=== PATIENT | male | born 1935 | race Caucasian/White ===

== ENCOUNTER 2023-02-17 19:15 | Inpatient (IN) | payer MEDICARE, OTHER ==
[~2023-02-17] VITALS: Ht 165.1 cm; Wt 73.5 kg
[2023-02-17] MEDS ORDERED: ALBU2.5V13 NEB (19:50)
[2023-02-17] MEDS ORDERED: HYDR-501 PO (19:50)
[2023-02-17] MEDS ORDERED: ARIP5TAB10 PO (19:50)
[2023-02-17] MEDS ORDERED: TIMO5DRO31 EACHEYE (19:50)
[2023-02-17] MEDS ORDERED: FLUT1BLS15 INH (19:50)
[2023-02-17 23:02] LABS: *BLOOD, URINE NEGATIVE (NEGATIVE); *CLARITY,URINE CLEAR (CLEAR); *COLOR,URINE YELLOW (YELLOW); *KETONES,URINE TRACE (NEGATIVE); *PROTEIN,URINE 1+ (NEGATIVE); *UROBILINOGEN,URINE 0.2 E.U./dl (NORMAL); LEUKOCYTE ESTERASE ,URINE NEGATIVE (NEGATIVE); NITRITE, URINE NEGATIVE (NEGATIVE); UGLUCOSE NEGATIVE (NEGATIVE)
[2023-02-17 23:03] LABS: *BILIRUBIN,URIN 1+ (NEGATIVE)
[2023-02-17 23:15] LABS: *AMPHETAMINE, URINE NEGATIVE (NEGATIVE); *BARBITURATE, URINE NEGATIVE (NEGATIVE); *BENZODIAZEPINE, URINE NEGATIVE (NEGATIVE); *CANNABINOID, URINE NEGATIVE (NEGATIVE); *COCCAINE, URINE NEGATIVE (NEGATIVE); *OPIATE, URINE NEGATIVE (NEGATIVE); *PHENCYCLIDINE SCREEN,URINE NEGATIVE (NEGATIVE)
[2023-02-17 23:17] LABS: FENTANYL, URINE NEGATIVE (NEGATIVE)
[2023-02-17 23:19] VITALS: BP 114/58; TEMP 98.5; O2SAT 94
[2023-02-18] MEDS ORDERED: TEMAZEPAM 7.5 MG CAPSULE PO PRN (00:30)
[2023-02-18] MEDS ORDERED: MAG HYDROX/AL HYDROX/SIMETH 30 ML LIQUID UDC PO PRN (00:30)
[2023-02-18] MEDS ORDERED: MAGNESIUM HYDROXIDE 30 ML LIQUID UDC PO PRN (00:30)
[2023-02-18 07:30] VITALS: BP 134/53; TEMP 98.2; O2SAT 96
[2023-02-18 07:55] LABS: CALCIUM 8.9 mg/dL (8.5-10.1); CARBON DIOXIDE 26 mmol/L (21-32); CHLORIDE 102 mmol/L (98-107); GLUCOSE 101 mg/dL (74-106); POTASSIUM 3.9 mmol/L (3.5-5.1); SODIUM SERUM 136 mmol/L (136-145); UREA NITROGEN, BLOOD 26 mg/dL (7-18)
[2023-02-18 07:56] LABS: AMMONIA < 10 umol/L (11-32)
[2023-02-18 08:04] LABS: BASOPHILS % (AUTO) 0.2 % (0.0-2.0); EOSINOPHILS # (AUTO) 0.1 K/uL (0.0-0.7); EOSINOPHILS % (AUTO) 1.6 % (0.0-7.0); HEMATOCRIT 37.4 % (36.7-47.1); HEMOGLOBIN 12.7 g/dL (12.5-16.3); LYMPHOCYTES # (AUTO) 2.1 K/uL (0.8-4.8); MEAN CORPUSCULAR HEMOGLOBIN 32.6 uug (23.8-33.4); MEAN CORPUSCULAR HGB CONC 34 g/dL (32.5-36.3); MONOCYTES # (AUTO) 1.1 K/uL (0.1-1.30); MONOCYTES % (AUTO) 14.7 % (0.0-11.0); NEUTROPHILS # (AUTO) 4.4 K/uL (1.8-8.9); NEUTROPHILS % (AUTO) 56.5 % (38.5-71.5); PLATELET COUNT (AUTO) 263 K/uL (152-348); RED BLOOD CELL COUNT(AUTO) 3.89 MIL/uL (4.06-5.63); RED CELL DISTRIBUTION WIDTH 13.9 % (12.1-16.2); WHITE BLOOD COUNT (AUTO) 7.8 K/uL (3.6-10.2)
[2023-02-18 08:05] LABS: DIFFERENTIAL COMMENT 1
[2023-02-18 08:09] LABS: THYROID STIMULATING HORMONE 2.046 mIU/mL (0.358-3.740)
[2023-02-18 08:13] LABS: ALANINE AMINOTRANSFERASE 25 U/L (16-63); ALBUMIN 2.4 g/dL (3.4-5.0); ALKALINE PHOSPHATASE 82 U/L (50-136); ASPARTATE AMINOTRANSFERASE 19 U/L (15-37); BILIRUBIN,DIRECT 0.2 mg/dL (0.0-0.2); BILIRUBIN,TOTAL 0.3 mg/dL (0.2-1.0); TOTAL PROTEIN, SERUM 7.1 g/dL (6.4-8.2)
[2023-02-18 08:15] LABS: ACETAMINOPHEN < 2.0 ug/mL (10-30)
[2023-02-18 09:25] LABS: ETHANOL < 3 MG/DL (0-10)
[2023-02-18] MEDS ORDERED: FLUTICASONE/SALMETEROL 250/50 INHALER INH SCH (09:30)
[2023-02-18] MEDS: ARIPIPRAZOLE 5 MG TABLET PO SCH ×2 (13:31→21:13)
[2023-02-18] MEDS ORDERED: TIMO1DRO EACHEYE (15:30)
[2023-02-18 15:38] VITALS: BP 92/46; TEMP 98.2; O2SAT 96
[2023-02-18] MEDS: DIVALPROEX SPRINKLE 125 MG CAP.SPRINK PO SCH (17:00)
[2023-02-18 20:00] VITALS: BP 115/60; TEMP 98.1; O2SAT 95
[2023-02-18] MEDS: hydrOXYzine HCL 25 MG TABLET PO PRN (21:14)
[2023-02-18] MEDS: LORAZEPAM 0.5 MG TABLET PO PRN (21:14)
[2023-02-19 07:55] VITALS: BP 103/56; TEMP 98.2; O2SAT 98
[2023-02-19] MEDS: ARIPIPRAZOLE 5 MG TABLET PO SCH ×2 (08:39→20:36)
[2023-02-19] MEDS: DIVALPROEX SPRINKLE 125 MG CAP.SPRINK PO SCH ×2 (08:39→17:37)
[2023-02-19] MEDS: TIMOLOL MALEATE 0.25% OPHT DR 5 ML BOTTLE EACHEYE SCH (08:39)
[2023-02-19] MEDS: FLUTICASONE/VILANTEROL 1 EACH BLST.W.DEV INH SCH (12:53)
[2023-02-19 15:40] VITALS: BP 107/48; TEMP 99.4; O2SAT 94
[2023-02-19 20:11] VITALS: BP 129/78; TEMP 98.1; O2SAT 98
[2023-02-20 08:00] VITALS: BP 106/45; TEMP 97.6; O2SAT 93
[2023-02-20] MEDS: DIVALPROEX SPRINKLE 125 MG CAP.SPRINK PO SCH ×2 (09:02→17:02)
[2023-02-20] MEDS: ARIPIPRAZOLE 5 MG TABLET PO SCH ×3 (09:02→20:09)
[2023-02-20] MEDS: TIMOLOL MALEATE 0.25% OPHT DR 5 ML BOTTLE EACHEYE SCH (09:02)
[2023-02-20] MEDS: FLUTICASONE/VILANTEROL 1 EACH BLST.W.DEV INH SCH (09:03)
[2023-02-20 15:36] VITALS: BP 92/43; TEMP 98.8; O2SAT 98
[2023-02-20 19:50] VITALS: BP 140/55; TEMP 99.2; O2SAT 95
[2023-02-20 22:30] VITALS: O2SAT 96
[2023-02-20 22:41] VITALS: O2SAT 98
[2023-02-20 22:45] VITALS: O2SAT 98
[2023-02-21 07:55] VITALS: BP 111/61; TEMP 98.6; O2SAT 99
[2023-02-21] MEDS: LORAZEPAM 0.5 MG TABLET PO PRN (08:05)
[2023-02-21] MEDS: DIVALPROEX SPRINKLE 125 MG CAP.SPRINK PO SCH ×2 (08:26→17:00)
[2023-02-21] MEDS: ARIPIPRAZOLE 5 MG TABLET PO SCH ×3 (08:26→20:44)
[2023-02-21] MEDS: ACETAMINOPHEN 325 MG TABLET PO PRN ×2 (08:26→17:02)
[2023-02-21] MEDS: FLUTICASONE/VILANTEROL 1 EACH BLST.W.DEV INH SCH (08:27)
[2023-02-21] MEDS: TIMOLOL MALEATE 0.25% OPHT DR 5 ML BOTTLE EACHEYE SCH (08:27)
[2023-02-21 09:28] LABS: ALANINE AMINOTRANSFERASE 42 U/L (16-63); ALBUMIN 2.5 g/dL (3.4-5.0); ALKALINE PHOSPHATASE 83 U/L (50-136); ASPARTATE AMINOTRANSFERASE 33 U/L (15-37); BILIRUBIN,TOTAL 0.6 mg/dL (0.2-1.0); CALCIUM 9.1 mg/dL (8.5-10.1); CARBON DIOXIDE 24 mmol/L (21-32); CHLORIDE 101 mmol/L (98-107); GLUCOSE 141 mg/dL (74-106); SODIUM SERUM 132 mmol/L (136-145); TOTAL PROTEIN, SERUM 8.1 g/dL (6.4-8.2); UREA NITROGEN, BLOOD 21 mg/dL (7-18)
[2023-02-21 14:47] VITALS: BP 114/53; TEMP 98.5; O2SAT 95
[2023-02-21] MEDS ORDERED: REMEDY ESSENTIAL ZINC PASTE 113 GM TOP PRN (15:15)
[2023-02-21] MEDS: hydrOXYzine HCL 25 MG TABLET PO PRN (15:42)
[2023-02-21 16:07] VITALS: O2SAT 98
[2023-02-21] MEDS: ALBUTEROL SULFATE 2.5 MG/ 0.5 ML NEBU NEB PRN (16:07)
[2023-02-21 19:45] VITALS: BP 117/64; TEMP 98.1; O2SAT 95
[2023-02-21 20:20] VITALS: O2SAT 97
[2023-02-22] MEDS: ACETAMINOPHEN 325 MG TABLET PO PRN ×2 (06:54→20:03)
[2023-02-22 07:34] VITALS: BP 114/57; TEMP 98.1; O2SAT 98
[2023-02-22] MEDS: FLUTICASONE/VILANTEROL 1 EACH BLST.W.DEV INH SCH (09:00)
[2023-02-22] MEDS: TIMOLOL MALEATE 0.25% OPHT DR 5 ML BOTTLE EACHEYE SCH (09:00)
[2023-02-22] MEDS: DIVALPROEX SPRINKLE 125 MG CAP.SPRINK PO SCH ×2 (09:19→17:45)
[2023-02-22] MEDS: ARIPIPRAZOLE 5 MG TABLET PO SCH (09:19)
[2023-02-22] MEDS: OLANZAPINE 2.5 MG TABLET PO SCH ×3 (12:56→20:02)
[2023-02-22 16:02] VITALS: BP 120/53; TEMP 98; O2SAT 98
[2023-02-22 16:14] LABS: FREE PSA 0.01 ng/mL (0.00-45); PROSTATE SPECIFIC ANTIGEN 0.13 ng/mL (0.00-4.00)
[2023-02-22 20:00] VITALS: BP 140/61; TEMP 99.4; O2SAT 95
[2023-02-22 21:29] VITALS: O2SAT 97
[2023-02-22 21:36] VITALS: TEMP 98.5
[2023-02-23] MEDS: ACETAMINOPHEN 325 MG TABLET PO PRN ×2 (06:22→20:38)
[2023-02-23 07:51] VITALS: BP 112/57; TEMP 98; O2SAT 98
[2023-02-23] MEDS: OLANZAPINE 2.5 MG TABLET PO SCH ×3 (08:46→20:38)
[2023-02-23] MEDS: DIVALPROEX SPRINKLE 125 MG CAP.SPRINK PO SCH ×2 (08:46→17:20)
[2023-02-23] MEDS: TIMOLOL MALEATE 0.25% OPHT DR 5 ML BOTTLE EACHEYE SCH (08:47)
[2023-02-23] MEDS: FLUTICASONE/VILANTEROL 1 EACH BLST.W.DEV INH SCH (08:48)
[2023-02-23] MEDS ORDERED: SWABABLE VALVE TRANSFER SET EA MC ONE (10:55)
[2023-02-23] MEDS ORDERED: IV NORMAL SALINE 250 ML BAG ONE (10:55)
[2023-02-23] MEDS ORDERED: IOHEXOL 300MG/ML 100 ML INFUS..BTL ONE (10:55)
[2023-02-23 16:08] VITALS: BP 115/57; TEMP 98; O2SAT 98
[2023-02-23 20:00] VITALS: BP 137/68; TEMP 97.8; O2SAT 96
[2023-02-24 08:09] VITALS: BP 117/60; TEMP 98; O2SAT 99
[2023-02-24] MEDS: TIMOLOL MALEATE 0.25% OPHT DR 5 ML BOTTLE EACHEYE SCH (08:44)
[2023-02-24] MEDS: OLANZAPINE 2.5 MG TABLET PO SCH ×3 (08:45→20:05)
[2023-02-24] MEDS: DIVALPROEX SPRINKLE 125 MG CAP.SPRINK PO SCH ×2 (08:45→17:13)
[2023-02-24] MEDS: FLUTICASONE/VILANTEROL 1 EACH BLST.W.DEV INH SCH (08:47)
[2023-02-24 16:28] VITALS: BP 94/62; TEMP 98; O2SAT 98
[2023-02-24 19:42] VITALS: BP 111/58; TEMP 98.2; O2SAT 100
[2023-02-24] MEDS: ACETAMINOPHEN 325 MG TABLET PO PRN (23:14)
[2023-02-25 06:35] VITALS: BP 160/90; TEMP 98; O2SAT 98
[2023-02-25 07:54] VITALS: BP 163/60; TEMP 98; O2SAT 96
[2023-02-25] MEDS: FLUTICASONE/VILANTEROL 1 EACH BLST.W.DEV INH SCH (08:44)
[2023-02-25] MEDS: TIMOLOL MALEATE 0.25% OPHT DR 5 ML BOTTLE EACHEYE SCH (08:45)
[2023-02-25] MEDS: OLANZAPINE 2.5 MG TABLET PO SCH ×3 (08:45→20:39)
[2023-02-25] MEDS: DIVALPROEX SPRINKLE 125 MG CAP.SPRINK PO SCH ×3 (08:45→16:56)
[2023-02-25 15:37] VITALS: BP 115/66; TEMP 98; O2SAT 100
[2023-02-25 20:14] VITALS: BP 125/57; TEMP 98.1; O2SAT 96
[2023-02-26] MEDS: ACETAMINOPHEN 325 MG TABLET PO PRN ×2 (04:14→21:40)
[2023-02-26] MEDS: LORAZEPAM 0.5 MG TABLET PO PRN ×2 (04:14→21:40)
[2023-02-26 07:53] VITALS: BP 121/59; TEMP 98; O2SAT 98
[2023-02-26] MEDS: TIMOLOL MALEATE 0.25% OPHT DR 5 ML BOTTLE EACHEYE SCH (09:26)
[2023-02-26] MEDS: OLANZAPINE 2.5 MG TABLET PO SCH ×3 (09:26→21:40)
[2023-02-26] MEDS: DIVALPROEX SPRINKLE 125 MG CAP.SPRINK PO SCH ×3 (09:26→16:47)
[2023-02-26] MEDS: FLUTICASONE/VILANTEROL 1 EACH BLST.W.DEV INH SCH (09:27)
[2023-02-26 15:40] VITALS: BP 118/67; TEMP 97.8; O2SAT 97
[2023-02-26 20:16] VITALS: BP 120/62; TEMP 98.1; O2SAT 96
[2023-02-26 21:31] VITALS: O2SAT 99
[2023-02-26] MEDS: ALBUTEROL SULFATE 2.5 MG/ 0.5 ML NEBU NEB PRN (21:31)
[2023-02-26 21:41] VITALS: O2SAT 99
[2023-02-27 07:53] VITALS: BP 125/68; TEMP 98.2; O2SAT 96
[2023-02-27 08:41] LABS: BASOPHILS # (AUTO) 0.1 K/UL (0.0-0.2); BASOPHILS % (AUTO) 0.7 % (0.0-2.0); EOSINOPHILS # (AUTO) 0.1 K/uL (0.0-0.7); EOSINOPHILS % (AUTO) 0.7 % (0.0-7.0); HEMATOCRIT 36.5 % (36.7-47.1); HEMOGLOBIN 12.4 g/dL (12.5-16.3); MEAN CORPUSCULAR HEMOGLOBIN 32.4 uug (23.8-33.4); MEAN CORPUSCULAR HGB CONC 34 g/dL (32.5-36.3); MEAN CORPUSCULAR VOLUME 95.1 fL (73.0-96.2); MONOCYTES % (AUTO) 10.1 % (0.0-11.0); NEUTROPHILS # (AUTO) 6.8 K/uL (1.8-8.9); NEUTROPHILS % (AUTO) 68.5 % (38.5-71.5); PLATELET COUNT (AUTO) 387 K/uL (152-348); RED BLOOD CELL COUNT(AUTO) 3.84 MIL/uL (4.06-5.63); RED CELL DISTRIBUTION WIDTH 14.1 % (12.1-16.2); WHITE BLOOD COUNT (AUTO) 9.9 K/uL (3.6-10.2)
[2023-02-27 08:50] LABS: DIFFERENTIAL COMMENT 1
[2023-02-27] MEDS: DIVALPROEX SPRINKLE 125 MG CAP.SPRINK PO SCH ×3 (09:29→17:08)
[2023-02-27] MEDS: OLANZAPINE 2.5 MG TABLET PO SCH ×3 (09:30→21:10)
[2023-02-27] MEDS: FLUTICASONE/VILANTEROL 1 EACH BLST.W.DEV INH SCH (09:30)
[2023-02-27] MEDS: TIMOLOL MALEATE 0.25% OPHT DR 5 ML BOTTLE EACHEYE SCH (09:30)
[2023-02-27 15:36] VITALS: BP 132/61; TEMP 98.2; O2SAT 98
[2023-02-27] MEDS: ACETAMINOPHEN 325 MG TABLET PO PRN ×2 (17:41→23:52)
[2023-02-27 20:00] VITALS: BP 140/54; TEMP 98.1; O2SAT 91
[2023-02-28 09:06] LABS: *TESTOSTERONE, SERUM 269 ng/dL (264-916)
[2023-02-28] MEDS: DIVALPROEX SPRINKLE 125 MG CAP.SPRINK PO SCH ×2 (09:36→13:09)
[2023-02-28] MEDS: FLUTICASONE/VILANTEROL 1 EACH BLST.W.DEV INH SCH (09:36)
[2023-02-28] MEDS: TIMOLOL MALEATE 0.25% OPHT DR 5 ML BOTTLE EACHEYE SCH (09:36)
[2023-02-28] MEDS: OLANZAPINE 2.5 MG TABLET PO SCH (09:37)
[2023-02-28 10:21] VITALS: BP 116/94; TEMP 98; O2SAT 92
[2023-02-28] MEDS: ACETAMINOPHEN 325 MG TABLET PO PRN (13:09)
== END 2023-02-28 14:20 | DRG 885 ==
LOC: ER 19:19 → GPS 22:46
PROVIDERS: ADMIT Psychiatry & Neurology Psychosomatic Medicine; ATTEND Internal Medicine
DX: F31.2 Bipolar disorder, current episode manic severe with psychotic features (principal); E43 Unspecified severe protein-calorie malnutrition; J44.89 Other specified chronic obstructive pulmonary disease; F03.92 Unspecified dementia, unspecified severity, with psychotic disturbance; I45.2 Bifascicular block; D68.59 Other primary thrombophilia; M84.432A Pathological fracture, left ulna, initial encounter for fracture; J90 Pleural effusion, not elsewhere classified; F03.918 Unspecified dementia, unspecified severity, with other behavioral disturbance; E66.9 Obesity, unspecified; Z68.27 Body mass index [BMI] 27.0-27.9, adult; Z74.09 Other reduced mobility; E55.9 Vitamin D deficiency, unspecified; Z87.01 Personal history of pneumonia (recurrent); H91.90 Unspecified hearing loss, unspecified ear; Z87.891 Personal history of nicotine dependence; N40.0 Benign prostatic hyperplasia without lower urinary tract symptoms; K21.9 Gastro-esophageal reflux disease without esophagitis; K44.9 Diaphragmatic hernia without obstruction or gangrene; I25.10 Atherosclerotic heart disease of native coronary artery without angina pectoris; Z85.46 Personal history of malignant neoplasm of prostate; Z80.0 Family history of malignant neoplasm of digestive organs; Z96.643 Presence of artificial hip joint, bilateral; Z88.0 Allergy status to penicillin; E88.09 Other disorders of plasma-protein metabolism, not elsewhere classified; M19.90 Unspecified osteoarthritis, unspecified site; G89.29 Other chronic pain; K64.9 Unspecified hemorrhoids; R91.8 Other nonspecific abnormal finding of lung field; I11.9 Hypertensive heart disease without heart failure; M35.3 Polymyalgia rheumatica; E78.5 Hyperlipidemia, unspecified
CPT/HCPCS: 36415; 70450; 71045; 71250; 71260; 73100; 73110; 80164; 82378; 82747; 83615; 83921; 84153; 84403; 84443; 84484; 85014; 85025; 85610; 85730; 93005; 94640; 94664; G0480; Q9967